=== PATIENT | male | born 1960 | race Caucasian/White ===

== ENCOUNTER 2019-03-21 00:10 | Emergency (ER) | payer OTHER ==
[~2019-03-21] VITALS: Ht 182.9 cm; Wt 99.8 kg
[~2019-03-21 00:10] MED LIST: AVAPRO300 MG; OMEPRAZOLE40 MG; PEPCID AC20 MG PO
== END 2019-03-21 13:31 | disposition home or self-care (01) ==
LOC: ER 00:10
DX: I88.0 Nonspecific mesenteric lymphadenitis (principal); K56.7 Ileus, unspecified

== ENCOUNTER 2019-03-27 13:42 | Inpatient (IN) | payer OTHER ==
[~2019-03-27] VITALS: Wt 6.0 kg
== END 2019-04-05 07:26 | disposition home or self-care (01) | DRG 336 ==
LOC: ER 13:42 → MEDJ 18:32
PROVIDERS: Surgery; ADMIT Internal Medicine Cardiovascular Disease
PROC: 0DNB4ZZ Release Ileum, Percutaneous Endoscopic Approach (ICD-10-PCS; principal; 2019-03-30 18:00)
PROC: 30233N1 Transfusion of Nonautologous Red Blood Cells into Peripheral Vein, Percutaneous Approach (ICD-10-PCS; 2019-04-03)
DX: K56.51 Intestinal adhesions [bands], with partial obstruction (principal); D62 Acute posthemorrhagic anemia; R18.8 Other ascites; Q61.01 Congenital single renal cyst; K29.00 Acute gastritis without bleeding; I10 Essential (primary) hypertension; I25.10 Atherosclerotic heart disease of native coronary artery without angina pectoris